=== PATIENT | female | born 1990 | race Caucasian/White ===

== ENCOUNTER 2016-08-15 21:41 | Emergency (ER) | payer OTHER ==
[2016-08-16 01:35] VITALS: BP 128/88
== END 2016-08-16 01:35 | disposition home or self-care (01) ==
LOC: ED 21:41
DX: R10.2 Pelvic and perineal pain (principal)
CPT/HCPCS: J1885

== ENCOUNTER 2017-04-28 14:56 | Emergency (ER) | payer SELFPAY ==
[2017-04-28 18:12] VITALS: BP 118/67
== END 2017-04-28 18:12 | disposition home or self-care (01) ==
LOC: ED 14:56
DX: R07.89 Other chest pain (principal)
CPT/HCPCS: J1885; Q0162

== ENCOUNTER 2017-09-20 07:10 | Emergency (ER) | payer BC ==
[~2017-09-20] VITALS: Ht 167.6 cm; Wt 103.4 kg
[2017-09-20 07:15] VITALS: Ht 167.6 cm; Wt 103.4 kg
[2017-09-20 07:55] LABS: BASOPHIL % 0.5 % (0-2); PLATELET COUNT 272 x10^3mcL (130-400); RED CELL DISTRIBUTION WIDTH 13.9 % (11.5-14.5)
[2017-09-20 08:57] LABS: CALCIUM 8.5 mg/dL (8.5-10.1); CARBON DIOXIDE 29.9 mmol/L (21-32); CHLORIDE SERUM 102 mmol/L (98-107); CREATININE SERUM 0.7 mg/dL (0.6-1.0); GFR1 > 60 mL/min; GLUCOSE SERUM 262 mg/dL (74-106); POTASSIUM SERUM 4.3 mmol/L (3.5-5.1); SODIUM SERUM 137 mmol/L (136-145)
[2017-09-20 08:59] LABS: ALBUMIN 3.6 g/dL (3.4-5.0); ALKALINE PHOSPHATASE 127 U/L (46-116); ALT/SGPT 30 U/L (14-59); AST/SGOT 19 U/L (15-37); BILIRUBIN TOTAL 0.2 mg/dL (0.20-1.00); LIPASE 596 IU/L (73-393); TOTAL PROTEIN, SERUM 7.4 g/dL (6.4-8.2)
[2017-09-20 09:39] VITALS: BP 130/92
== END 2017-09-20 09:40 | disposition home or self-care (01) ==
LOC: ED 07:10
PROVIDERS: Emergency Medicine
DX: K85.90 Acute pancreatitis without necrosis or infection, unspecified (principal)
CPT/HCPCS: 36415